=== PATIENT | male | born 1975 | race Caucasian/White ===

== ENCOUNTER → 2022-10-21 07:49 | Outpatient (REF) | payer OTHER, SELFPAY ==
--- NOTE | 2022-10-21 07:54 | CA_ITS ---
Transthoracic Echocardiogram Patient (Last, First, Middle): Mehul Villareal, Gender: Male Date of : 1975 Age: 47 Procedure Date: 10/21/2022 Procedure Type: Transthoracic Echocardiogram Location: OP Height: 175.26 cm Weight: 92.99 kg BSA: 2.09 m2 Heart Rate: bpm BP: 122 / 84 mmHg Ehs Specialist: TO Referring MD: Edith Agustin BRAIDING MACHINE TENDER Field Traffic Investigator: Steve Huddleston MD Symptoms: HEART MURMUR Study Quality: Fair/Contrast ECG Rhythm: Sinus Conclusions: - Essentially normal study Findings Procedure Information Contrast agent, definity, is being given per protocol without apparent complications. Left Ventricle Normal left ventricular size, thickness, and systolic function. The visually estimated ejection fraction is between 55-60%. Spectral Doppler is indicative of a normal filling pattern. Right Ventricle Normal right ventricular cavity size and systolic function. Atria Both atria are normal in size. Interatrial shunt cannot be excluded. Aortic Valve The aortic valve structure and function is likely normal. There is no aortic valve stenosis. There is no aortic valve regurgitation. Mitral Valve Normal mitral valve structure and function. There is trace mitral valve regurgitation. There is no mitral valve stenosis. Pulmonic Valve The pulmonic valve was not well visualized. Tricuspid Valve Likely normal tricuspid valve structure and function. Tricuspid regurgitation envelope is inadequate for calculation of right ventricular systolic pressure. Normal right atrial pressure. Great Vessels All visible segments of the aorta are normal in size. The pulmonary artery was not well visualized. Venous The inferior vena cava is normal in size and collapses greater than 50% with inspiration. Pericardium/Pleural There is no evidence of pericardial effusion. Prior Study Comparison No prior study available for comparison. Measurements 2D Linear Measurements IVSd: 0.80 0.6-0.9/0.6-1.0 cm LVIDd: 4.55 3.9-5.3/4.2-5.9 cm LVIDd Index: 2.18 2.4-3.2/2.2-3.1 cm/m2 LVIDs: 3.19 2.0-3.6 cm LVPWd: 0.83 0.7-1.1 cm LA Diam: 3.30 2.7-3.8/3.0-4.0 cm LAIDs Index: 1.58 1.5-2.3 cm/m2 LV Mass: 148.10 67-162/88-224 g LV Mass Index: 70.86 43-95/49-115 g/m2 LVOT Diam: 2.40 3.0+(-)1.3 cm 2D Systolic Function EF 4C: 56.90 >55% EF 2C: 63.30 >55% EF BiP: 59.40 >55% Mitral Valve MV Pk E: 0.66 MV PK A: 0.50 MV Decel Time: 173.00 E/A: 1.30 E'Lateral: 13.20 E'Medial: 5.33 E/E' Med: 12.30 E/E' Lat: 5.00 PHT: 51.00 MVA PHT: 4.31 Decel [place]: 3.78 Aortic Valve AoV Pk Merlin: 1.10 AoV Mn Merlin: 0.77 AoV VTI: 0.25 AoV Pk Grad: 5.00 Aov Mn Grad: 3.00 MIGUEL Cont.VTI: 2.99 LVOT LVOT Pk Merlin: 0.74 LVOT Mn Merlin: 0.49 LVOT VTI: 0.16 LVOT Pk Grad: 2.00 LVOT Mn Grad: 1.00 LVOT Diam: 2.40 LVOT Area: 4.52 Diastolic Function MV Pk E: 0.66 MV Pk A: 0.50 E/A: 1.30 E'Medial: 5.33 E/E' Med: 12.30 E' Laterial: 13.20 E/E' Lat: 5.00 Right Ventricle TAPSE (mm): 26.20 TVS' Merlin: 11.10 Tricuspid Valve TR Pk Merlin: 2.48 TR Pk Grad: 25.00 Great Vessels Aorta Sinus of Valsalva: 3.58 2.0-3.5 cm Ao Asc: 3.20 2.1-3.4 cm Updated in Other Vendor System with Status of Final Steve Huddleston MD electronically signed on 10/22/2022 2:27:53 PM with status of Final
== END ==
LOC: HO.CARD 07:49
PROVIDERS: PCP Nurse Practitioner Family; Visit Provider Nurse Practitioner Family
DX: R01.1 Cardiac murmur, unspecified (principal)
CPT/HCPCS: 93306; Q9957

== ENCOUNTER → 2022-10-21 07:54 | Outpatient (BNV) | payer OTHER, SELFPAY | PROVIDERS: PCP Nurse Practitioner Family; Visit Provider Internal Medicine Cardiovascular Disease | DX: R01.1 Cardiac murmur, unspecified (principal) | CPT/HCPCS: 93306 ==

== ENCOUNTER 2025-02-05 12:44 | Outpatient (AMB) | payer OTHER, SELFPAY ==
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
[2025-02-05 13:14] VITALS: BP 120/74; PULSE 80; RESP 16; TEMP 36.5; O2SAT 98; BMI 31.7
--- OUTSIDE RECORDS SUMMARY | 2025-02-05 16:05 | XMS_ITS | Encounter Summary ---
Author Organization [facility] Address [address] [address] Phone Care Team Providers Care Manager Unix Name Role Phone Montse Moss Primary Care Provider [phone] Reason for Referral * Outpatient Procedure - Closed Specialty Diagnoses / Procedures Referred By Contac t Referred To Contact Radiology Diagnoses Right calf pain Pain of right lower leg Procedures US Lower Extremity Veins Duplex (Right) Montse Moss PA Phone: tel: fax: mailto:[email or web address] Referral ID Status Reason Start Date Expiration Date Visits Re quested Visits Authorized [id number] Closed 01/21/2022 1 1 Encounter Details Date Type Department Care Team (Latest Contact Info) Description 01/21/2022 Transcribe Orders Virtual Department [address] [place] [address] Montse Moss PA [address] [place] [address] [email or web address] Right calf pain (Primary Dx); Pain of right lower leg Social History Tobacco Use Types Packs/Day Years Used Date Smoking Tobacco: Never Assessed Sex and Gender Information Value Date Recorded Sex Assigned at Male 07/18/2022 5:10 PM EDT Legal Sex Male 9:31 PM EDT Gender Identity Male 07/18/2022 5:10 PM EDT Sexual Orientation Not on file documented as of this encounter Plan of Treatment Not on file documented as of this encounter Results * US Lower Extremity Veins Duplex (Right) (01/21/2022 1:26 PM EDT) Anatomical Region Laterality Modality Hip Right, Thigh Right, Knee Right, Leg Right, Ankle Right, Foot Right Ultrasound 01/21/2022 2:36 PM EDT Impressions 01/21/2022 2:37 PM EDT 1.No evidence of deep or superficial venous thrombosis in the visualized veins of the right lower extremity. Narrative 01/21/2022 2:37 PM EDT US LOWER EXTREMITY VEINS DUPLEX (RIGHT) TECHNIQUE: Lower extremity venous ultrasound with color and spectral Doppler. COMPARISON: None FINDINGS: Exam Quality: Technically adequate exam demonstrates: Right lower extremity Common femoral vein: Normal compressibility and flow characteristics. Femoral vein: Normal compressibility and flow characteristics. Proximal profunda femoral vein: Normal compressibility and flow characteristics. Popliteal vein: Normal compressibility and flow characteristics. Gastrocnemius vein: Normal compressibility and flow characteristics. Posterior tibial vein: Normal compressibility and flow characteristics. Peroneal vein: Normal compressibility and flow characteristics. Contralateral common femoral vein: Normal compressibility and flow characteristics. Procedure Note Malu Eden MD - 01/21/2022 US LOWER EXTREMITY VEINS DUPLEX (RIGHT) TECHNIQUE: Lower extremity venous ultrasound with color and spectralDoppler. COMPARISON: None FINDINGS: Exam Quality: Technically adequate exam demonstrates: Right lower extremity Common femoral vein: Normal compressibility and flow characteristics. Femoral vein: Normal compressibility and flow characteristics. Proximal profunda femoral vein: Normal compressibility and flowcharacteristics. Popliteal vein: Normal compressibility and flow characteristics. Gastrocnemius vein: Normal compressibility and flow characteristics. Posterior tibial vein: Normal compressibility and flow characteristics. Peroneal vein: Normal compressibility and flow characteristics. Contralateral common femoral vein: Normal compressibility and flowcharacteristics. IMPRESSION: 1.No evidence of deep or superficial venous thrombosis in the visualizedveins of the right lower extremity. us Montse DODGE US VASCULAR Final Result documented in this encounter Visit Diagnoses Diagnosis Right calf pain- Primary Pain of right lower leg Right calf pain Pain of right lower leg documented in this encounter Care Teams Manager Unix Relationship Specialty Start Date End Date Montse Moss PA [email or web address] PCP - General 09/01/21 documented as of this encounter Additional Source Comments The information contained in this document represents components of the legal health record. It is not the complete legal health record.[facility]
--- OUTSIDE RECORDS SUMMARY | 2025-02-05 16:05 | XMS_ITS | Clinical Summary ---
Author Organization [facility] Address [address] [facility] [address] [place] [address] Phone Care Team Providers Care Lead Electrician Name Role Phone Montse Moss Primary Care Provider [phone] Allergies No known active allergies Medications apixaban (ELIQUIS) 5 mg tablet Take 1 tablet (5 mg total) by mouth 2 (two) times a day. 60 tablet 07/27/2022 Active Active Problems Problem Noted Date Diagnosed Date Pain of left lower extremity 07/19/2022 Assessment & Plan (07/19/2022 12:55 AM EDT): Second DVT, likely provoked by long hours seated at work. Without definitive evidence for right heart strain, but with extensive clot burden. -Admit to telemetry, initiate enoxaparin. -TTE in the AM -Consider consult with IR for thrombectomy Social History Tobacco Use Types Packs/Day Years Used Date Smoking Tobacco: Never Tobacco Cessation:Counseling Given: Not Answered Alcohol Use Standard Drinks/Week Comments Not Asked 0 (1 standard drink = 0.6 oz pur e alcohol) rarely drinks Education Answer Date Recorded Are you interested in more education? Not on gail e 08/05/2022 Are you concerned about learning? Not on file 08/05/2022 No 08/05/2022 No 08/05/2022 Digital Access Answer Date Recorded No 09/02/2022 No 09/02/2022 Reliable internet access at home? Not on file 09/02/2022 Device with a working camera? Not on file Intimate Partner Violence Answer Date R ecorded Are you denied basic needs s uch as food, clothing, or medical care? No 07/18/2022 In the past 12 months have y ou been in a relationship with a person who hurts, threatens, or tries to control you? No 07/18/2022 Are you denied basic needs s uch as food, clothing, or medical care? No 07/18/2022 In the past 12 months have y ou been in a relationship with a person who hurts, threatens, or tries to control you? No 07/18/2022 Sex and Gender Information Value Date Recorded Sex Assigned at Male 07/18/2022 5:10 PM EDT Legal Sex Male 9:31 PM EDT Gender Identity Male 07/18/2022 5:10 PM EDT Sexual Orientation Not on file Last Filed Vital Signs Vital Sign Reading Time Taken Comments Blood Pressure 116/74 07/19/2022 1:00 PM EDT Pulse 83 07/19/2022 1:00 PM EDT Temperature 36.5 C (97.7 F) 07/19/2022 1:00 PM EDT Respiratory Rate 18 07/19/2022 1:00 PM EDT Oxygen Saturation 96% 07/19/2022 1:00 PM EDT Inhaled Oxygen Concentration - - Weight 94.2 kg (207 lb 11.2 oz) 023 12:18 AM EDT Height 175.3 cm (5' 9 ) 07/19/2022 12:1 8 AM EDT Body Mass Index 30.67 07/19/2022 12:18 AM EDT Plan of Treatment Health Maintenance Due Date Last Done Comments LIPID PANEL 1973 DEPRESSION SCREENING 1985 HEPATITIS C SCREENING 1991 HIV ONE-TIME SCREENING (18-6 5 YEARS) 1991 SMOKING STATUS SCREENING (On ce After 26 Yrs) 1999 COLOGUARD 2018 COLONOSCOPY 2018 COLORECTAL CANCER SCREENING 2018 FIT TEST 2018 FOBT 2018 SIGMOIDOSCOPY 2018 VIRTUAL COLONOSCOPY 2018 Adult Td,Tdap Booster 01/18/2022 01/19/2012 PNEUMOCOCCAL VACCINES (50+ years) (1 of 1 - PCV) 2023 ZOSTER VACCINES (1 of 2) 2023 CREATININE LEVEL 07/20/2023 07/19/2022, 07/18/2022 INFLUENZA VACCINE (#1) 2024 01/19/2012 COVID-19 VACCINE (2 - 2024-2 6 season) 2024 08/06/2020 SCREENING FOR DIABETES 07/19/2025 07/19/2022 RSV VACCINE (1 - 1-dose 75+ series) 2048 HEPATITIS A VACCINES Aged Out No long er eligible based on patient's age to complete this topic HIB VACCINES Aged Out No longer eligi ble based on patient's age to complete this topic MENINGOCOCCAL VACCINES (ACWY) Aged Out No longer eligible based on patient's age to complete this topic MENINGOCOCCAL VACCINES (B) Aged Out N o longer eligible based on patient's age to complete this topic Medical Devices Not on file Procedures Procedure Name Priority Date/Time Associated Diagnosis Comments BASIC METABOLIC PANEL Routine 07/19/2022 5:56 AM EDT from Last 3 Months or Most Recently Relevant to Health Maintenance Results * (ABNORMAL) Basic metabolic panel (07/19/2022 5:56 AM EDT) SODIUM 142 133 - 146 mmol/L [facility] CHLORIDE 106 96 - 108 mmol/L [facility] POTASSIUM 3.7 3.3 - 5.1 mmol/L [facility] CO2 26 21 - 35 mmol/L [facility] BUN 11 6 - 19 mg/dL [facility] CREATININE 0.90 0.5 - 1.5 mg/dL [facility] GLUCOSE 111(H) 70 - 99 mg/dL [facility] CALCIUM 9.0 8.4 - 10.3 mg/dL [facility] EGFR 105 >59 mL/min/1.7 3m2 [facility] Comment:Estimated glomerular filtration rate calculated using the CKD-EPI refit equation. ANION GAP 14 10 - 20 mmol/L [facility] Blood 07/19/2022 5:56 AM EDT 07/19/2022 6:08 AM EDT us Viet Dougherty PA-C LAB BLOOD ORDERABLES Final Result Performing Organization Address City/State/[facility] Co de Phone Number [address] [address] from Last 3 Months or Most Recently Relevant to Health Maintenance Insurance PPO PPO UNITED PPO UNITED PPO UNITED PPO UNITED PPO Advance Directives For more information, please contact: [phone] (9AM - 5PM [facility], Monday-Monday) Documents on File Type Date Recorded Patient Cabinet Mounter Expl anation Healthcare Proxy 07/19/2022 HCP 07/19/19 23 * Full Code (Latest Code Status on File) Date Activated Date Inactivated Comments 07/19/2022 12:41 AM Question Answer Comments Code Status Confirmed With: Patient Care Teams Lead Electrician Relationship Specialty Start Date End Date Montse Moss PA [email or web address] PCP - General 09/01/21 Additional Source Comments The information contained in this document represents components of the legal health record. It is not the complete legal health record.[facility]
--- OUTSIDE RECORDS SUMMARY | 2025-02-05 16:05 | XMS_ITS | Encounter Summary ---
Author Organization [facility] Address [address] [place] [address] Phone Care Team Providers Care Buyer Grain Name Role Phone Montse Moss Primary Care Provider [phone] Encounter Details Date Type Department Care Team (Late st Contact Info) Description 03/17/2022 Procedure Pass [address] [place] [address] Social History Tobacco Use Types Packs/Day Years Used Date Smoking Tobacco: Never Assessed Sex and Gender Information Value Date Recorded Sex Assigned at Male 07/18/2022 5:10 PM EDT Legal Sex Male 9:31 PM EDT Gender Identity Male 07/18/2022 5:10 PM EDT Sexual Orientation Not on file documented as of this encounter Plan of Treatment Not on file documented as of this encounter Visit Diagnoses Not on filedocumented in this encounter Care Teams Buyer Grain Relationship Specialty Start Date End Date Montse Moss PA [email or web address] PCP - General 09/01/21 documented as of this encounter Additional Source Comments The information contained in this document represents components of the legal health record. It is not the complete legal health record.[facility]
--- OUTSIDE RECORDS SUMMARY | 2025-02-05 16:05 | XMS_ITS | Encounter Summary ---
Author Organization [facility] Address [address] [address] Phone Care Team Providers Care Ict Development Manager Name Role Phone Montse Moss Primary Care Provider Reason for Referral * MRI/CAT Scan - Closed Specialty Diagnoses / Procedures Referred By Contac t Referred To Contact Radiology Diagnoses Radiculopathy, lumbar region Procedures MRI Lumbar Spine CHG MRI, LUMBAR SPINE Otoniel Mack MD Phone: tel: fax: mailto:[email or web address] Referral ID Status Reason Start Date Expiration Date Visits Re quested Visits Authorized [id number] Closed 03/01/2022 08/28/2022 1 1 Encounter Details Date Type Department Care Team (Latest Contact Info) Description 03/17/2022 Transcribe Orders Virtual Department [address] [place] [address] Otoniel Mack MD [address] [place] [address] [email or web address] Radiculopathy, lumbar region (Primary Dx) Social History Tobacco Use Types Packs/Day Years [...] documented as of this encounter Results * MRI LUMBAR SPINE (BONE) WITHOUT CONTRAST (04/20/2022 7:27 AM EST) Anatomical Region Laterality Modality L-spine Magnetic Resonan ce 04/20/2022 8:59 AM EST Impressions 04/20/2022 4:52 PM EST Diffuse disc bulge at L4-5 causing bilateral lateral recess stenosis. Diffuse disc bulge at L5-S1 causing mild bilateral foraminal stenosis. Narrative 04/20/2022 4:52 PM EST MRI LUMBAR SPINE (BONE) WITHOUT CONTRAST TECHNIQUE: MRI LUMBAR SPINE (BONE) WITHOUT CONTRAST Multi-sequence, multi-planar MRI of the lumbar spine was performed without intravenous contrast. COMPARISON: XR LUMBOSACRAL SPINE 2-3 VIEWS FINDINGS: Vertebrae: No suspicious marrow replacing lesion. No compression fracture. Discs and endplates: There is a diffuse disc bulge at L4-5 causing bilateral lateral recess stenosis. There is diffuse disc bulge at L5-S1 causing mild bilateral foraminal stenosis. Conus: Normal position. No signal abnormality. Soft Tissue: No paraspinal edema. Right renal parapelvic cyst. Procedure Note Nimco Pappas MD - 04/20/2022 MRI LUMBAR SPINE (BONE) WITHOUT CONTRAST TECHNIQUE: MRI LUMBAR SPINE (BONE) WITHOUT CONTRAST Multi-sequence, multi-planar MRI of the lumbar spine was performed withoutintravenous contrast. COMPARISON: XR LUMBOSACRAL SPINE 2-3 VIEWS FINDINGS: Vertebrae: No suspicious marrow replacing lesion. No compressionfracture. Discs and endplates: There is a diffuse disc bulge at L4-5 causingbilateral lateral recess stenosis. There is diffuse disc bulge at L5-W1xsiplda mild bilateral foraminal stenosis. Conus: Normal position. No signal abnormality. Soft Tissue: No paraspinal edema. Right renal parapelvic cyst. IMPRESSION: Diffuse disc bulge at L4-5 causing bilateral lateral recess stenosis. Diffuse disc bulge at L5-S1 causing mild bilateral foraminal stenosis. Otoniel Mack MD IMG MR XSPECIALTY Bernadette l Result documented in this encounter Visit Diagnoses Diagnosis Radiculopathy, lumbar region- Primary Thoracic or lumbosacral neuritis or radiculitis, unspecified Radiculopathy, lumbar region Thoracic or lumbosacral neuritis or radiculitis, unspecified documented in this encounter Care Teams Ict Development Manager Relationship Specialty Start Date End Date Montse Moss PA [email or web address] PCP - General 09/01/21 documented as of this encounter Additional Source Comments The information contained in this document represents components of the legal health record. It is not the complete legal health record.[facility]
--- OUTSIDE RECORDS SUMMARY | 2025-02-05 16:05 | XMS_ITS | Encounter Summary ---
Author Organization [facility] Address [address] [address] Phone Care Team Providers Care Associate Professor Of Education Name Role Phone Montse Moss Primary Care Provider [phone] Encounter Details Date Type Department Care Team (Late st Contact Info) Description 07/19/2022 Procedure Pass [facility] [address] [place] [address] Social History Tobacco Use Types Packs/Day Years Used Date Smoking Tobacco: Never Alcohol Use Standard Drinks/Week Comments Not Asked 0 (1 standard drink = 0.6 oz pur e alcohol) rarely drinks Intimate Partner Violence Answer Date R ecorded [...] on filedocumented in this encounter Care Teams Associate Professor Of Education Relationship Specialty Start Date End Date Montse Moss PA [email or web address] PCP - General 09/01/21 documented as of this encounter Additional Source Comments The information contained in this document represents components of the legal health record. It is not the complete legal health record.[facility]
--- OUTSIDE RECORDS SUMMARY | 2025-02-05 16:06 | XMS_ITS | Encounter Summary ---
Author Organization [facility] Address [address] [facility] [address] [place] [address] Phone Care Team Providers Care Box Toe Stitcher Name Role Phone Montse Moss Primary Care Provider [phone] Encounter Details Date Type Department Care Team (Late st Contact Info) Description 07/18/2022 Procedure Pass [facility], Ct Scan - [facility] [address] [place] [address] Social History Tobacco Use Types Packs/Day Years Used Date Smoking Tobacco: Never Assessed Intimate Partner Violence Answer Date R ecorded [...] on file documented as of this encounter Functional Status * Calculated C-SSRS Risk Score (Lifetime/Recent) Answer Date of Assessment Author No Risk Indicated 07/18/2022 5:09 PM EDT Madie, Ila, RN * [place] Suicide Severity Rating Scale (Screener/Recent Self-Report) Question Answer Date of Assessment Author 1. Wish to be (Past 1 Month) No 023 5:09 PM EDT Ila Ramachandran RN 2. Non-Specific Active Suici cher Thoughts (Past 1 Month) No 07/18/2022 5:09 PM EDT Ila Ramachandran RN 6. Suicidal Behavior (Lifetime) No 5:09 PM EDT Ila Ramachandran RN documented as of this encounter Plan of Treatment Not on file documented as of this encounter Visit Diagnoses Not on filedocumented in this encounter Care Teams Box Toe Stitcher Relationship Specialty Start Date End Date Montse Moss PA [email or web address] PCP - General 09/01/21 documented as of this encounter Additional Source Comments The information contained in this document represents components of the legal health record. It is not the complete legal health record.[facility]
== END 2025-02-05 14:58 | disposition home or self-care (01) ==
PROVIDERS: PCP Physician Assistant; Visit Provider Physician Assistant
DX: E78.5 Hyperlipidemia, unspecified (principal); Z86.711 Personal history of pulmonary embolism; M54.50 Low back pain, unspecified; G89.29 Other chronic pain; M25.552 Pain in left hip; Z87.19 Personal history of other diseases of the digestive system

== ENCOUNTER → 2025-02-05 12:44 | Outpatient (BNVA) | payer OTHER, SELFPAY | PROVIDERS: PCP Physician Assistant; Visit Provider Physician Assistant | DX: M54.50 Low back pain, unspecified (principal); G89.29 Other chronic pain; E78.5 Hyperlipidemia, unspecified; Z86.718 Personal history of other venous thrombosis and embolism; Z86.711 Personal history of pulmonary embolism; Z87.19 Personal history of other diseases of the digestive system | CPT/HCPCS: 96127 ==

== ENCOUNTER 2025-02-06 08:00 | Outpatient (REF) | payer OTHER, SELFPAY ==
--- NOTE | ~2025-02-06 | XR_ITS ---
EXAMINATION: XR HIP, LEFT CLINICAL INFORMATION: M54.50 - Low back pain, unspecified COMPARISON: None available. TECHNIQUE: Two views of the left hip and one view of the pelvis. FINDINGS: Bone alignment is normal. No fracture or dislocation. There is mild arthritis of both hip joints with joint space narrowing and osteophyte formation.There may be ankylosis of the left sacroiliac joint. The bones of the pelvis are otherwise unremarkable. Soft tissues are unremarkable. XR/XR hip LT w [id number] IMPRESSION: Mild bilateral hip osteoarthritis. Question ankylosis of the left sacroiliac joint. Electronically signed by: Lo Franco MD 02/06/2025 08:44 AM EDT
--- OUTSIDE RECORDS SUMMARY | 2025-02-06 08:11 | XMS_ITS | Encounter Summary ---
Author Organization [facility] Address [address] [address] Phone Care Team Providers Care Ceramic Tile Mechanic Name Role Phone Montse Moss Primary Care Provider [phone] Reason for Referral * MRI/CAT Scan - Closed Specialty Diagnoses / Procedures Referred By Contac t Referred To Contact Radiology Diagnoses Radiculopathy, lumbar region Procedures MRI Lumbar Spine CHG MRI, LUMBAR SPINE Otoniel Mack MD Phone: tel: fax: mailto:[email or web address] Referral ID Status Reason Start Date Expiration Date Visits Re quested Visits Authorized [id number] Closed 03/01/2022 08/28/2022 1 1 Encounter Details Date Type Department Care Team (Latest Contact Info) Description 03/17/2022 Transcribe Orders Virtual Department [address] [place] [address] Otoniel Mack MD [address] [place] [address] [email or web address] Radiculopathy, lumbar region (Primary Dx) Social History [...] stenosis. There is diffuse disc bulge at [id number] mild bilateral foraminal stenosis. Conus: Normal position. [...] unspecified documented in this encounter Care Teams Ceramic Tile Mechanic Relationship Specialty Start Date End Date Montse Moss PA [email or web address] PCP - General 09/01/21 documented as of this encounter Additional Source Comments The information contained in this document represents components of the legal health record. It is not the complete legal health record.[facility]
--- OUTSIDE RECORDS SUMMARY | 2025-02-06 08:11 | XMS_ITS | Encounter Summary ---
Author Organization [facility] Address [address] [address] Phone Care Team Providers Care Refrigerated Cargo Clerk Name Role Phone Montse Moss Primary Care Provider [phone] Encounter Details Date Type Department Care Team (Late st Contact Info) Description 07/19/2022 Procedure Pass [facility] [address] [place] [address] Social History Tobacco Use Types Packs/Day Years [...] on filedocumented in this encounter Care Teams Refrigerated Cargo Clerk Relationship Specialty Start Date End Date Montse Moss PA [email or web address] PCP - General 09/01/21 documented as of this encounter Additional Source Comments The information contained in this document represents components of the legal health record. It is not the complete legal health record.[facility]
--- OUTSIDE RECORDS SUMMARY | 2025-02-06 08:11 | XMS_ITS | Clinical Summary ---
Author Organization [facility] Address [address] [facility] [address] [place] [address] Phone Care Team Providers Care Data Manager Name Role Phone Montse Moss Primary Care Provider [phone] Allergies No known active allergies Medications apixaban [...] EDT) SODIUM 142 133 - 146 mmol/L [facility] CHLORIDE 106 96 - 108 mmol/L [facility] POTASSIUM 3.7 3.3 - 5.1 mmol/L [facility] CO2 26 21 - 35 mmol/L [facility] BUN 11 6 - 19 mg/dL [facility] CREATININE 0.90 0.5 - 1.5 mg/dL [facility] GLUCOSE 111(H) 70 - 99 mg/dL [facility] CALCIUM 9.0 8.4 - 10.3 mg/dL [facility] EGFR 105 >59 mL/min/1.7 3m2 [facility] Comment:Estimated glomerular filtration rate calculated using the CKD-EPI refit equation. ANION GAP 14 10 - 20 mmol/L [facility] Blood 07/19/2022 5:56 AM EDT 07/19/2022 6:08 AM EDT us Viet Dougherty PA-C LAB BLOOD ORDERABLES Final Result Performing Organization Address City/State/[facility] Co de Phone Number [address] [address] from Last 3 Months or Most Recently Relevant to Health Maintenance Insurance PPO PPO UNITED PPO UNITED PPO UNITED PPO UNITED PPO Advance Directives For more information, please contact: [phone] (9AM - 5PM [facility], Monday-Monday) Documents on File Type Date Recorded Patient Lumber Driver Expl anation Healthcare Proxy 07/19/2022 HCP 07/19/19 23 * Full Code (Latest Code Status on File) Date Activated Date Inactivated Comments 07/19/2022 12:41 AM Question Answer Comments Code Status Confirmed With: Patient Care Teams Data Manager Relationship Specialty Start Date End Date Montse Moss PA [email or web address] PCP - General 09/01/21 Additional Source Comments The information contained in this document represents components of the legal health record. It is not the complete legal health record.[facility]
--- OUTSIDE RECORDS SUMMARY | 2025-02-06 08:11 | XMS_ITS | Encounter Summary ---
Author Organization [facility] Address [address] [address] Phone Care Team Providers Care Human Resources Manager Manufacturing Name Role Phone Montse Moss Primary Care Provider [phone] Reason for Referral * Outpatient Procedure - Closed Specialty Diagnoses / Procedures Referred By Contac t Referred To Contact Radiology Diagnoses Right calf pain Pain of right lower leg Procedures US Lower Extremity Veins Duplex (Right) Montse Moss PA Phone: tel: fax: mailto:[email or web address] Referral ID Status Reason Start Date Expiration Date Visits Re quested Visits Authorized [id number] Closed 01/21/2022 1 1 Encounter Details Date Type Department Care Team (Latest Contact Info) Description 01/21/2022 Transcribe Orders Virtual Department [address] [place] [address] Montse Moss PA [address] [place] [address] [email or web address] Right calf pain (Primary Dx); Pain of [...] leg documented in this encounter Care Teams Human Resources Manager Manufacturing Relationship Specialty Start Date End Date Montse Moss PA [email or web address] PCP - General 09/01/21 documented as of this encounter Additional Source Comments The information contained in this document represents components of the legal health record. It is not the complete legal health record.[facility]
--- OUTSIDE RECORDS SUMMARY | 2025-02-06 08:11 | XMS_ITS | Encounter Summary ---
Author Organization [facility] Address [address] [facility] [address] [place] [address] Phone Care Team Providers Care Computer Systems Consultant Name Role Phone Montse Moss Primary Care Provider Encounter Details Date Type Department Care Team (Late st Contact Info) Description 07/18/2022 Procedure Pass [facility], Ct Scan - [facility] [address] [place] [address] Social History Tobacco Use Types Packs/Day Years [...] 5:09 PM EDT Madie, Ila, RN * [place] Suicide Severity Rating Scale (Screener/Recent Self-Report) Question [...] on filedocumented in this encounter Care Teams Computer Systems Consultant Relationship Specialty Start Date End Date Montse Moss PA [email or web address] PCP - General 09/01/21 documented as of this encounter Additional Source Comments The information contained in this document represents components of the legal health record. It is not the complete legal health record.[facility]
--- OUTSIDE RECORDS SUMMARY | 2025-02-06 08:11 | XMS_ITS | Encounter Summary ---
Author Organization [facility] Address [address] [place] [address] Phone Care Team Providers Care Mud Mill Tender Name Role Phone Montse Moss Primary Care Provider Encounter Details Date Type Department Care Team (Late st Contact Info) Description 03/17/2022 Procedure Pass [address] [place] [address] Social History Tobacco Use Types Packs/Day Years [...] on filedocumented in this encounter Care Teams Mud Mill Tender Relationship Specialty Start Date End Date Montse Moss PA [email or web address] PCP - General 09/01/21 documented as of this encounter Additional Source Comments The information contained in this document represents components of the legal health record. It is not the complete legal health record.[facility]
[2025-02-06 08:15] LABS: MANUAL DIFF FLAG NO
[2025-02-06 08:45] LABS: Hematocrit 43.2 % (42.0-52.0); Hemoglobin 14.9 g/dl (14.0-18.0); Imm Gran Abs Auto 0.01 X10*3/uL (0.00-0.03); Imm Gran Pct Auto 0.2 % (0.0-0.4); Lymphocytes Absolute Auto 2.5 X10*3/uL (1.2-4.9); Mean Corpuscular HGB Conc 34.5 g/dl (31.0-36.0); Mean Corpuscular Hemoglobin 29.0 pg (27.0-33.0); Mean Corpuscular Volume 84.2 fL (80.0-98.0); NRBC Abs Auto 0.000 X10*3/uL (0.0-0.012); NRBC Pct Auto 0.0 /100WBC (0.0-0.2); Platelet Count 195 X10*3/uL (160-400); Red Blood Count 5.13 X10*6/uL (4.60-5.80); White Blood Count 5.6 X10*3/uL (4.8-10.8)
[2025-02-06 08:54] LABS: Alanine Aminotransferase 68 U/L (0-40); Albumin Level 4.3 g/dL (3.5-5.0); Alkaline Phosphatase 73 U/L (39-117); Anion Gap 12 (12-20); Aspartate Amino Transferase 44 U/L (5-37); Blood Urea Nitrogen 13 mg/dL (9-16); Calcium 9.0 mg/dL (8.4-10.2); Carbon Dioxide 26 mmol/L (22-29); Chloride 108 mmol/L (96-108); Cholesterol 260 mg/dL (<200); Estimated Glomerular Filt Rate > 60; HDL Cholesterol 36 mg/dL (>40); Potassium 4.0 mmol/L (3.3-5.1); Sodium 142 mmol/L (135-145); Total Protein 7.5 g/dL (6.5-8.0); Triglycerides 167 mg/dL (<150)
[2025-02-06 08:58] LABS: Appearance Urine Clear; Glucose Urine UA Negative (Negative); PH 6.0 (5.0-9.0); Specific Gravity - Urine 1.015 (1.005-1.025); UMIC TRIGGER UACC YES
== END 2025-02-06 08:01 | disposition home or self-care (01) ==
LOC: HO.XRAY 08:00
PROVIDERS: PCP Physician Assistant; Visit Provider Physician Assistant
DX: Z00.00 Encounter for general adult medical examination without abnormal findings (principal); Z01.89 Encounter for other specified special examinations; M54.50 Low back pain, unspecified; M25.552 Pain in left hip; G89.29 Other chronic pain; Z86.718 Personal history of other venous thrombosis and embolism; Z86.711 Personal history of pulmonary embolism; Z12.5 Encounter for screening for malignant neoplasm of prostate; Z13.6 Encounter for screening for cardiovascular disorders; Z13.29 Encounter for screening for other suspected endocrine disorder
CPT/HCPCS: 36415; 73502; 80053; 80061; 81001; 82043; 82570; 84153; 84443; 85025

== ENCOUNTER → 2025-02-06 08:18 | Outpatient (BNV) | payer OTHER, SELFPAY | PROVIDERS: PCP Physician Assistant; Visit Provider Radiology Diagnostic Radiology | DX: M54.50 Low back pain, unspecified (principal) | CPT/HCPCS: 73502 ==

== ENCOUNTER 2025-02-19 06:56 | Outpatient (REF) | payer OTHER, SELFPAY ==
--- OUTSIDE RECORDS SUMMARY | 2025-02-19 06:58 | XMS_ITS | Encounter Summary ---
Author Organization [facility] Address [address] [address] Phone Care Team Providers Care E Commerce Strategist Name Role Phone Montse Moss Primary Care Provider [phone] Reason for Referral * Outpatient Procedure - Closed Specialty Diagnoses / Procedures Referred By Contac t Referred To Contact Radiology Diagnoses Right calf pain Pain of right lower leg Procedures US Lower Extremity Veins Duplex (Right) Montse Moss PA Phone: tel: fax: mailto:[email or web address] Referral ID Status Reason Start Date Expiration Date Visits Re quested Visits Authorized [id number] Closed 01/21/2022 1 1 Encounter Details Date Type Department Care Team (Latest Contact Info) Description 01/21/2022 Transcribe Orders Virtual Department [address] [place] [address] Montse Moss PA [address] [place] [address] [email or web address] Right calf pain (Primary Dx); Pain of [...] leg documented in this encounter Care Teams E Commerce Strategist Relationship Specialty Start Date End Date Montse Moss PA [email or web address] PCP - General 09/01/21 documented as of this encounter Additional Source Comments The information contained in this document represents components of the legal health record. It is not the complete legal health record.[facility]
--- OUTSIDE RECORDS SUMMARY | 2025-02-19 06:58 | XMS_ITS | Encounter Summary ---
Author Organization [facility] Address [address] [facility] [address] [place] [address] Phone Care Team Providers Care Television Repairman Name Role Phone Montse Moss Primary Care Provider [phone] Encounter Details Date Type Department Care Team (Late st Contact Info) Description 07/18/2022 Procedure Pass [facility], Ct Scan - [facility] [address] [place] [address] Social History Tobacco Use Types Packs/Day Years [...] 5:09 PM EDT Madie, Ila, RN * [place] Suicide Severity Rating Scale (Screener/Recent Self-Report) Question [...] on filedocumented in this encounter Care Teams Television Repairman Relationship Specialty Start Date End Date Montse Moss PA [email or web address] PCP - General 09/01/21 documented as of this encounter Additional Source Comments The information contained in this document represents components of the legal health record. It is not the complete legal health record.[facility]
--- OUTSIDE RECORDS SUMMARY | 2025-02-19 06:58 | XMS_ITS | Encounter Summary ---
Author Organization [facility] Address [address] [address] Phone Care Team Providers Care Product Marketing Engineer Name Role Phone Montse Moss Primary Care Provider [phone] Encounter Details Date Type Department Care Team (Late st Contact Info) Description 07/19/2022 Procedure Pass [facility] [address] [place] [address] Social History Tobacco Use Types Packs/Day Years [...] on filedocumented in this encounter Care Teams Product Marketing Engineer Relationship Specialty Start Date End Date Montse Moss PA [email or web address] PCP - General 09/01/21 documented as of this encounter Additional Source Comments The information contained in this document represents components of the legal health record. It is not the complete legal health record.[facility]
--- OUTSIDE RECORDS SUMMARY | 2025-02-19 06:58 | XMS_ITS | Clinical Summary ---
Author Organization [facility] Address [address] [facility] [address] [place] [address] Phone Care Team Providers Care Mechanical Drafter Name Role Phone Montse Moss Primary Care Provider [phone] Allergies No known active allergies Medications apixaban [...] on patient's age to complete this topic IPV VACCINES Aged Out No longer eligi ble [...] Date/Time Associated Diagnosis Comments BASIC METABOLIC PANEL (BMP) Routine 07/19/2022 5:56 AM EDT from Last 3 Months or Most Recently Relevant to Health Maintenance Results * (ABNORMAL) Basic metabolic panel (07/19/2022 5:56 AM EDT) SODIUM 142 133 - 146 mmol/L [facility] CHLORIDE 106 96 - 108 mmol/L [facility] POTASSIUM 3.7 3.3 - 5.1 mmol/L [facility] CO2 26 21 - 35 mmol/L [facility] BUN 11 6 - 19 mg/dL [facility] CREATININE 0.90 0.5 - 1.5 mg/dL [facility] GLUCOSE 111(H) 70 - 99 mg/dL [facility] CALCIUM 9.0 8.4 - 10.3 mg/dL [facility] EGFR 105 >59 mL/min/1.7 3m2 [facility] Comment:Estimated glomerular filtration rate calculated using the CKD-EPI refit equation. ANION GAP 14 10 - 20 mmol/L [facility] Blood 07/19/2022 5:56 AM EDT 07/19/2022 6:08 AM EDT us Viet Dougherty PA-C LAB BLOOD BKR ORDERABLES F inal Result [facility] [address] [place] [address] from Last 3 Months or Most Recently Relevant to Health Maintenance Insurance [place] [address] [place] [address] PPO PPO PPO PPO Advance Directives For more information, please contact: [phone] (9AM - 5PM [facility], Monday-Monday) Documents on File Type Date Recorded Patient Remote Encoding Center Manager Expl anation Healthcare Proxy 07/19/2022 HCP 07/19/19 23 * Full Code (Latest Code Status on File) Date Activated Date Inactivated Comments 07/19/2022 12:41 AM Question Answer Comments Code Status Confirmed With: Patient Care Teams Mechanical Drafter Relationship Specialty Start Date End Date Montse Moss PA [email or web address] PCP - General 09/01/21 Additional Source Comments The information contained in this document represents components of the legal health record. It is not the complete legal health record.[facility]
--- OUTSIDE RECORDS SUMMARY | 2025-02-19 06:58 | XMS_ITS | Encounter Summary ---
Author Organization [facility] Address [address] [address] Phone Care Team Providers Care Corporate Development Intern Name Role Phone Montse Moss Primary Care Provider [phone] Reason for Referral * MRI/CAT Scan - Closed Specialty Diagnoses / Procedures Referred By Contac t Referred To Contact Radiology Diagnoses Radiculopathy, lumbar region Procedures MRI Lumbar Spine CHG MRI, LUMBAR SPINE Otoniel Mack MD Phone: tel: fax: mailto:[email or web address] Referral ID Status Reason Start Date Expiration Date Visits Re quested Visits Authorized [id number] Closed 03/01/2022 08/28/2022 1 1 Encounter Details Date Type Department Care Team (Latest Contact Info) Description 03/17/2022 Transcribe Orders Virtual Department [address] [place] [address] Otoniel Mack MD [address] [place] [address] [email or web address] Radiculopathy, lumbar region (Primary Dx) Social History [...] stenosis. There is diffuse disc bulge at [id number] mild bilateral foraminal stenosis. Conus: Normal position. [...] unspecified documented in this encounter Care Teams Corporate Development Intern Relationship Specialty Start Date End Date Montse Moss PA [email or web address] PCP - General 09/01/21 documented as of this encounter Additional Source Comments The information contained in this document represents components of the legal health record. It is not the complete legal health record.[facility]
--- OUTSIDE RECORDS SUMMARY | 2025-02-19 06:58 | XMS_ITS | Encounter Summary ---
Author Organization [facility] Address [address] [employer] [address] [place] [address] Phone Care Team Providers Care Transport Conductor Name Role Phone Montse Moss Primary Care Provider [phone] Encounter Details Date Type Department Care Team (Late st Contact Info) Description 03/17/2022 Procedure Pass [address] [place] [address] Social History Tobacco Use Types Packs/Day Years [...] on filedocumented in this encounter Care Teams Transport Conductor Relationship Specialty Start Date End Date Montse Moss PA [email or web address] PCP - General 09/01/21 documented as of this encounter Additional Source Comments The information contained in this document represents components of the legal health record. It is not the complete legal health record.[facility]
[2025-02-19 08:19] LABS: Appearance Urine Clear; Glucose Urine UA Negative (Negative); PH 6.5 (5.0-9.0); Specific Gravity - Urine 1.015 (1.005-1.025)
[2025-02-19 08:40] LABS: Alanine Aminotransferase 57 U/L (0-40); Albumin Level 4.4 g/dL (3.5-5.0); Alkaline Phosphatase 75 U/L (39-117); Anion Gap 12 (12-20); Aspartate Amino Transferase 41 U/L (5-37); Blood Urea Nitrogen 12 mg/dL (9-16); Calcium 9.5 mg/dL (8.4-10.2); Carbon Dioxide 28 mmol/L (22-29); Chloride 106 mmol/L (96-108); Estimated Glomerular Filt Rate > 60; Gamma Glutamyl Transpeptidase 33 U/L (11-51); Potassium 3.8 mmol/L (3.3-5.1); Sodium 142 mmol/L (135-145); Total Protein 7.7 g/dL (6.5-8.0)
[2025-02-19 08:59] LABS: Ferritin 258 ng/mL (20-250)
[2025-02-20 07:08] LABS: Lyme Abs Screen <0.90 index
[2025-02-23 23:48] LABS: Anti Nuclear Antibody Screen NEGATIVE (NEGATIVE)
== END 2025-02-19 06:57 | disposition home or self-care (01) ==
LOC: HO.LAB 06:56
PROVIDERS: PCP Physician Assistant; Visit Provider Physician Assistant
DX: Z00.00 Encounter for general adult medical examination without abnormal findings (principal); Z01.84 Encounter for antibody response examination; M43.28 Fusion of spine, sacral and sacrococcygeal region; M54.50 Low back pain, unspecified; G89.29 Other chronic pain; R94.5 Abnormal results of liver function studies; R30.0 Dysuria; M25.552 Pain in left hip; R73.01 Impaired fasting glucose; Z86.718 Personal history of other venous thrombosis and embolism; Z86.711 Personal history of pulmonary embolism; Z86.19 Personal history of other infectious and parasitic diseases
CPT/HCPCS: 36415; 80048; 80076; 81003; 82728; 82977; 83036; 85652; 86038; 86140; 86431; 86617; 86618

== ENCOUNTER 2025-02-24 07:53 | Outpatient (REF) | payer OTHER, SELFPAY ==
[2025-02-24 08:41] LABS: Iron 83 mcg/dL (45-160); Percent Iron Saturation 38 % (15-50); Total Iron Binding Capacity 217 mcg/dL (228-428); Unsaturated Iron Binding 134 ug/dL
--- OUTSIDE RECORDS SUMMARY | 2025-02-24 09:12 | XMS_ITS | Encounter Summary ---
Author Organization [facility] Address [address] [employer] [address] [place] [address] Phone Care Team Providers Care Sergeant At Arms Name Role Phone Montse Moss Primary Care Provider [phone] Encounter Details Date Type Department Care Team (Late st Contact Info) Description 03/17/2022 Procedure Pass [address] [place] [address] Social History Tobacco Use Types Packs/Day Years [...] on filedocumented in this encounter Care Teams Sergeant At Arms Relationship Specialty Start Date End Date Montse Moss PA [email or web address] PCP - General 09/01/21 documented as of this encounter Additional Source Comments The information contained in this document represents components of the legal health record. It is not the complete legal health record.[facility]
--- OUTSIDE RECORDS SUMMARY | 2025-02-24 09:13 | XMS_ITS | Encounter Summary ---
Author Organization [facility] Address [address] [address] Phone Care Team Providers Care Tornado Chaser Name Role Phone Montse Moss Primary Care Provider [phone] Reason for Referral * MRI/CAT Scan - Closed Specialty Diagnoses / Procedures Referred By Contac t Referred To Contact Radiology Diagnoses Radiculopathy, lumbar region Procedures MRI Lumbar Spine CHG MRI, LUMBAR SPINE Otoniel Mack MD Phone: tel: fax: mailto:[email or web address] Referral ID Status Reason Start Date Expiration Date Visits Re quested Visits Authorized [id number] Closed 03/01/2022 08/28/2022 1 1 Encounter Details Date Type Department Care Team (Latest Contact Info) Description 03/17/2022 Transcribe Orders Virtual Department [address] [place] [address] Otoniel Mack MD [address] [place] [address] [email or web address] Radiculopathy, lumbar region (Primary Dx) Social History [...] stenosis. There is diffuse disc bulge at [id number] mild bilateral foraminal stenosis. Conus: Normal position. [...] unspecified documented in this encounter Care Teams Tornado Chaser Relationship Specialty Start Date End Date Montse Moss PA [email or web address] PCP - General 09/01/21 documented as of this encounter Additional Source Comments The information contained in this document represents components of the legal health record. It is not the complete legal health record.[facility]
--- OUTSIDE RECORDS SUMMARY | 2025-02-24 09:13 | XMS_ITS | Clinical Summary ---
Author Organization [facility] Address [address] [facility] [address] [place] [address] Phone Care Team Providers Care Instructional Aide Name Role Phone Montse Moss Primary Care Provider [phone] Allergies No known active allergies Medications apixaban [...] AM -Consider consult with IR for thrombectomy Encounters Date Type Department Care Team Description 02/21/2025 Refill [facility] [address] [place] [address] Elei Blunt MD Medication Refill from Last 3 Months Social History Tobacco Use Types Packs/Day Years [...] ce After 26 Yrs) 1999 COLOGUARD 2018 FIT TEST 2018 FOBT 2018 SIGMOIDOSCOPY 2018 VIRTUAL COLONOSCOPY 2018 Adult Td,Tdap Booster 01/18/2022 01/19/2012 PNEUMOCOCCAL VACCINES (50+ years) (1 of 1 - PCV) 2023 ZOSTER VACCINES (1 of 2) 2023 CREATININE LEVEL 07/20/2023 07/19/2022, 07/18/2022 INFLUENZA VACCINE (#1) 2024 01/19/2012 COVID-19 VACCINE (2 - 2024-2 6 season) 2024 08/06/2020 SCREENING FOR DIABETES 07/19/2025 07/19/2022 COLONOSCOPY 09/01/2028 09/01/2021 COLORECTAL CANCER SCREENING 09/01/2028 RSV VACCINE (1 - 1-dose 75+ series) [...] PANEL (BMP) Routine 07/19/2022 5:56 AM EDT COLONOSCOPY FOR RESULT ENTRY ONLY Routine 09/01/2021 from Last 3 Months or Most Recently Relevant to Health Maintenance Results * (ABNORMAL) Basic metabolic panel (07/19/2022 5:56 AM EDT) SODIUM 142 133 - 146 mmol/L [facility] CHLORIDE 106 96 - 108 mmol/L [facility] POTASSIUM 3.7 3.3 - 5.1 mmol/L [facility] CO2 26 21 - 35 mmol/L [facility] BUN 11 6 - 19 mg/dL [facility] CREATININE 0.90 0.5 - 1.5 mg/dL [facility] GLUCOSE 111(H) 70 - 99 mg/dL [facility] CALCIUM 9.0 8.4 - 10.3 mg/dL [facility] EGFR 105 >59 mL/min/1.7 3m2 [facility] Comment:Estimated glomerular filtration rate calculated using the CKD-EPI refit equation. ANION GAP 14 10 - 20 mmol/L [facility] Blood 07/19/2022 5:56 AM EDT 07/19/2022 6:08 AM EDT us Viet Dougherty PA-C LAB BLOOD BKR ORDERABLES F inal Result [facility] [address] [place], [place] [id number] * COLONOSCOPY FOR RESULT ENTRY ONLY (09/01/2021) Colonoscopy External Historical Provider HEALTH MAINTENANCE Final Result from Last 3 Months or Most Recently Relevant to Health Maintenance Insurance O PPO UNITED PPO UNITED PPO [facility] Advance Directives For more information, please contact: [phone] (9AM - 5PM [facility], Monday-Monday) Documents on File Type Date Recorded Patient Associate Research Scientist Expl anation Healthcare Proxy 07/19/2022 HCP 07/19/19 23 * Full Code (Latest Code Status on File) Date Activated Date Inactivated Comments 07/19/2022 12:41 AM Question Answer Comments Code Status Confirmed With: Patient Care Teams Instructional Aide Relationship Specialty Start Date End Date Montse Moss PA [email or web address] PCP - General 09/01/21 Additional Source Comments The information contained in this document represents components of the legal health record. It is not the complete legal health record.[facility]
--- OUTSIDE RECORDS SUMMARY | 2025-02-24 09:14 | XMS_ITS | Encounter Summary ---
Author Organization [facility] Address [address] [address] Phone Care Team Providers Care Garnisher Name Role Phone Montse Moss Primary Care Provider [phone] Reason for Referral * Outpatient Procedure - Closed Specialty Diagnoses / Procedures Referred By Contac t Referred To Contact Radiology Diagnoses Right calf pain Pain of right lower leg Procedures US Lower Extremity Veins Duplex (Right) Montse Moss PA Phone: tel: fax: mailto:[email or web address] Referral ID Status Reason Start Date Expiration Date Visits Re quested Visits Authorized [id number] Closed 01/21/2022 1 1 Encounter Details Date Type Department Care Team (Latest Contact Info) Description 01/21/2022 Transcribe Orders Virtual Department [address] [place] [address] Montse Moss PA [address] [place] [address] [email or web address] Right calf pain (Primary Dx); Pain of [...] leg documented in this encounter Care Teams Garnisher Relationship Specialty Start Date End Date Montse Moss PA [email or web address] PCP - General 09/01/21 documented as of this encounter Additional Source Comments The information contained in this document represents components of the legal health record. It is not the complete legal health record.[facility]
--- OUTSIDE RECORDS SUMMARY | 2025-02-24 09:14 | XMS_ITS | Encounter Summary ---
Author Organization [facility] Address [address] [employer] [facility] [address] [place] [address] Phone Care Team Providers Care Sample Cutter Name Role Phone Montse Moss Primary Care Provider [phone] Encounter Details Date Type Department Care Team (Late st Contact Info) Description 07/18/2022 Procedure Pass [facility], Ct Scan - [facility] [address] [place] [address] Social History Tobacco Use Types Packs/Day Years [...] 5:09 PM EDT Madie, Ila, RN * [place] Suicide Severity Rating Scale (Screener/Recent Self-Report) Question [...] on filedocumented in this encounter Care Teams Sample Cutter Relationship Specialty Start Date End Date Montse Moss PA [email or web address] PCP - General 09/01/21 documented as of this encounter Additional Source Comments The information contained in this document represents components of the legal health record. It is not the complete legal health record.[facility]
--- OUTSIDE RECORDS SUMMARY | 2025-02-24 09:14 | XMS_ITS | Encounter Summary ---
Author Organization [facility] Address [address] [address] Phone Care Team Providers Care Child Care Centre Manager Name Role Phone Montse Moss Primary Care Provider [phone] Encounter Details Date Type Department Care Team (Late st Contact Info) Description 07/19/2022 Procedure Pass [facility] [address] [place] [address] Social History Tobacco Use Types Packs/Day Years [...] on filedocumented in this encounter Care Teams Child Care Centre Manager Relationship Specialty Start Date End Date Montse Moss PA [email or web address] PCP - General 09/01/21 documented as of this encounter Additional Source Comments The information contained in this document represents components of the legal health record. It is not the complete legal health record.[facility]
--- OUTSIDE RECORDS SUMMARY | 2025-02-24 09:15 | XMS_ITS | Encounter Summary ---
Author Organization [facility] Address [address] [address] Phone Care Team Providers Care Manufacturing Area Manager Name Role Phone Montse Moss Primary Care Provider [phone] Reason for Visit * Reason Comments Medication Refill Encounter Details Date Type Department Care Team (Late st Contact Info) Description 02/21/2025 Refill [facility] [address] [place] [address] Elie Blunt MD [address] [place] [address] [email or web address] Medication Refill Social History Tobacco Use Types Packs/Day Years [...] on filedocumented in this encounter Care Teams Manufacturing Area Manager Relationship Specialty Start Date End Date Montse Moss PA [email or web address] PCP - General 09/01/21 documented as of this encounter Additional Source Comments The information contained in this document represents components of the legal health record. It is not the complete legal health record.[facility]
== END 2025-02-24 07:54 | disposition home or self-care (01) ==
LOC: HO.LAB 07:53
PROVIDERS: PCP Physician Assistant; Visit Provider Physician Assistant
DX: R79.89 Other specified abnormal findings of blood chemistry (principal)
CPT/HCPCS: 36415; 83540